=== PATIENT | female | born 1995 | race African-American/Black ===

== ENCOUNTER 2021-02-24 09:45 | Outpatient (REF) | payer OTHER, SELFPAY ==
[2021-02-24 10:12] LABS: MANUAL DIFF FLAG NO
[2021-02-24 10:18] LABS: Basophils Percent Auto 0.3 % (0-2); Eosinophils Absolute Auto 0.1 X10*3/uL (0.0-0.4); Eosinophils Percent Auto 2.3 % (0-4); Hematocrit 37.4 % (37-47); Hemoglobin 11.7 g/dl (12.0-16.0); Imm Gran Abs Auto 0.02 X10*3/uL (0.00-0.03); Imm Gran Pct Auto 0.3 % (0.0-0.4); Lymphocytes Percent Auto 32.4 % (20-40); Mean Corpuscular HGB Conc 31.3 g/dl (31.0-35.0); Mean Corpuscular Hemoglobin 23.8 pg (27.0-33.0); Mean Corpuscular Volume 76.2 fL (80-98); Mean Platelet Volume 9.7 fL (9.4-12.3); Monocytes Absolute Auto 0.4 X10*3/uL (0.1-1.2); Monocytes Percent Auto 6.6 % (2-11); Neutrophils Absolute Auto 3.6 X10*3/uL (2.0-8.3); Neutrophils Percent Auto 58.1 % (45-73); Platelet Count 331 X10*3/uL (160-400); Red Blood Count 4.91 X10*6/uL (4.20-5.50); Red Cell Distribution Width 14.3 % (11.0-16.0); White Blood Count 6.2 X10*3/uL (4.8-10.8)
[2021-02-24 11:01] LABS: Alanine Aminotransferase 13 U/L (0-31); Albumin Level 4.2 g/dL (3.5-5.0); Alkaline Phosphatase 68 U/L (39-117); Anion Gap 11 (12-20); Aspartate Amino Transferase 16 U/L (5-31); Bilirubin Total 0.4 mg/dL (0.0-1.0); Blood Urea Nitrogen 13 mg/dL (9-16); Calcium 9.4 mg/dL (8.4-10.2); Carbon Dioxide 25 mmol/L (22-29); Chloride 109 mmol/L (96-108); Cholesterol 209 mg/dL; Estimated Glomerular Filt Rate > 60; Glucose Fasting 91 mg/dL (60-99); HDL Cholesterol 52 mg/dL; LDL Cholesterol Calculated 145 mg/dl; Potassium 4.4 mmol/L (3.3-5.1); Sodium 141 mmol/L (135-145); Total Protein 6.9 g/dL (6.5-8.0); Triglycerides 61 mg/dL
[2021-02-24 11:21] LABS: Thyroid Stimulating Hormone 2.55 uIU/mL (0.32-4.0)
== END 2021-02-24 09:46 | disposition home or self-care (01) ==
LOC: HO.LAB 09:45
PROVIDERS: PCP Internal Medicine; Visit Provider Internal Medicine
DX: E66.3 Overweight (principal)
CPT/HCPCS: 36415; 80053; 80061; 84443; 85025

== ENCOUNTER 2022-01-23 10:00 | Outpatient (RCR) | payer OTHER, SELFPAY ==
--- NOTE | 2021-12-24 13:52 | MHC.PT.EP ---
[facility] [place] Office [place] [facility] [place] Office [address] Radha Hendrix [address] [phone] F: [phone] F: [phone] F: [phone] F: [phone] Physical Therapy Plan of Care Date of Evaluation: Date of Surgery: N/A Diagnosis: low back pain (RC) Assessment: pt's signs and symptoms consistent w/ lumbar radiculopathy. Other working diagnoses include SI dysfunction and pelvic floor dysfunction. pt presents to physical therapy with pain, decreased range of motion, decreased strength, impaired functional mobility, impaired postural awareness, and gait deviations. pt is a good candidate for skilled PT due to age, potential remediation of impairments, typical disease/condition progression and prognosis, comorbidities, and motivation. pt would benefit from tailored strengthening and stretching exercise program, functional training, gait training, postural re-training, neuromuscular re-education, modalities as needed for pain, equipment safety demonstration. Frequency and Duration: The patient will be seen 2x/wk for 4 wks Short Term Goals: pt will be I w/ HEP to promote self-management of condition. pt will demo proper sitting posture w/ lumbar roll to promote neutral spine w/ seated ADLs. pt will improve hip abduction strength by 1 MMT grade to remediate Trendelenburg on even ground. Librarian Helper Goals: pt will report a statistically significant improvement in self-reported outcome measure, Annamarie, to promote return to PLOF. pt will demo proper lifting mechanics from floor to chest height x3 reps to promote neutral spine w/ lifting her son. Treatment Plan: Modalities to reduce pain, spasms and effusion. Manual therapy to restore motion and function. Therapeutic exercise to improve strength and flexibility. Neuromuscular re-education for posture and balance. Therapeutic activities to return to functional activities of daily living. Electronically signed by: Bettie Larsen PT, DPT Please sign and return to therapist. Thank you for your referral.
--- NOTE | 2022-02-02 11:19 | MHC.PT.DC ---
[facility] [place] Office [place] Office [place] Office [address] Radha Hendrix [address] [phone] F: [phone] F: [phone] F: [phone] F: [phone] Physical Therapy Discharge Report Diagnosis: low back pain (RC) Date of Surgery: N/A Date of Evaluation: 12/24/21 Date of Discharge: 02/02/22 Treatments to Date: 7 Cancellations to Date: 0 No Shows to Date: 0 Discharge Status: Achieved Goals Improved Function Independent with HEP Discharge Summary: The patient overall reports a reduction in pain intensity and frequency. She has achieved all short term and extermination inspector goals established at the initial evaluation. She is independent with her home exercise program including hip and back stretching as well as core and pelvic stability exercises. She occasionally has some mild flare ups but feels her current program is adequate in controlling her pain. She is discharged from this physical therapy plan of care to her [facility]. Electronically signed by: Bettie Larsen PT, DPT Please sign and return to therapist. Thank you for your referral.
== END 2022-02-02 11:19 | disposition home or self-care (01) ==
LOC: HO.PT 10:00
PROVIDERS: PCP Nurse Practitioner Family; Visit Provider Nurse Practitioner Family
DX: M54.50 Low back pain, unspecified (principal)
CPT/HCPCS: 97110; 97112; 97162; 97530

== ENCOUNTER 2024-06-06 10:33 | Outpatient (AMB) | payer OTHER, SELFPAY ==
--- NOTE | 2024-06-06 10:42 | MHC.PC.OV ---
Vital Signs 06/06/24 10:43 Height 5 ft 5 in Weight 173 lb BMI 28.8 BP 130/60 Blood Pressure Location Lt brachial Position Sitting Intake Visit Reasons: Re est care- PE request Intake Note: Patient is here today for a physical and YAHIR from B.S. Pt decline flu shot today. Bodywork Therapist Required: No Compensation Specialist: Not Required per policy Accompanied by: Self / Same As Patient Allergies No Known Allergies Allergy (Verified 06/06/24 10:43) Tobacco use date assessed: 06/06/24 Dental Screening Dental Screen Date: 06/06/24 Did you have a dental visit in the last 12 months?: Yes Did you have a dental problem in the last 6 months where you did not have access to dental care?: No Was dental information given to patient?: Patient has dentist HPI Re est care- PE request HPI Details Patient presents to the office requesting an annual physical. In addition she reports a lump in the left lateral side below the chest. NO pain or tenderness. 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 1. Little interest or pleasure in doing things: not at all 2. Feeling down, depressed, or hopeless: not at all 3. Trouble falling or staying asleep, or sleeping too much: not at all 4. Feeling tired or having little energy: not at all 5. Poor appetite or overeating: not at all 6. Feeling bad about yourself - or that you are a failure or have let yourself or your family down: not at all 7. Trouble concentrating on things, such as reading the newspaper or watching television: not at all 8. Moving or speaking so slowly that other people could have noticed. Or the opposite - being so fidgety or restless that you have been moving around a lot more than usual: not at all 9. Thoughts that you would be better off or of hurting yourself in some way: not at all Total score: 0 Depression Screening Interpretation: Negative Depression Screening Done: Yes Source: Developed by Drs. Олег Hernandez, Adelita Darden, Haile Morfin and colleagues, with an educational tracey from [employer]. Thrive Questionnaire Date Thrive assessed: 06/06/24 I am a: Patient What is your living situation today?: I have a steady place to live Within the past 12 months, did the food you bought not last and you didn't have the money to get more?: Never true Within the past 12 months, did you worry whether your food would run out before you got money to buy more?: Never true Do you have trouble paying for medicines?: No Do you have trouble getting transportation to medical appointments?: No Do you have trouble paying your heating and electricity bill?: No Do you have trouble taking care of your child, family member or friend?: No Do you have trouble with day-to-day activities such as bathing, preparing meals, shopping, managing finances, etc.?: No Are you currently unemployed and looking for a job?: No Are you interested in more education?: No Currently or been in a relationship where the following occur: No concerns reported THRIVE Score: 0 AUDIT C Alcohol Use Questionnaire (AUDIT-C) 1. How often do you have a drink containing alcohol?: Never 3. How often do you have six or more drinks on one occasion?: Never Total Score: 0 YASH-7 AMB Questionnaire YASH-7 Date YASH - 7 assessed: 06/06/24 Feeling nervous, anxious, or on edge: 0 = Not at all Not being able to stop or control worryin = Not at all Worrying too much about different things: 0 = Not at all Trouble relaxin = Not at all Being so restless that it is hard to sit still: 0 = Not at all Becoming easily annoyed or irritable: 0 = Not at all Feeling afraid as if something awful might happen: 0 = Not at all Total YASH-7 score (0-4 normal; 5-9 mild; 10-14 moderate; 15-21 severe): 0 Source: Developed by Drs. Олег Hernandez, Adelita Darden, Haile Morfin and colleagues, with an educational tracey from [employer]. Physical exam (Primary Care) Vital Signs: Last Vital Signs BP 130/60 06/06/24 10:43 BMI result Body Mass Index 28.8 Tobacco/Smoking Status: Tobacco use Status Tobacco use date assessed 06/06/24 06/06/24 10:48 Patient Tobacco Use Status Never used Tobacco 06/06/24 10:47 e-Cigarette/Vaping Use Never Used 06/06/24 10:47 PHQ-9: PHQ-9 Score PHQ-9: Total score 0 06/06/24 10:49 Depression Screening Interpretation: Negative Thrive Assessment: Date of Thrive Assessment Date Thrive assessed 06/06/24 06/06/24 10:43 Currently or been in a relationship where the following occur: No concerns reported Coding Level of Care Code Est Pt Level 3 (95710) Est Pt Prev Care 18-39y(50474) Diagnoses Lipoma D17.9 Annual physical exam Z00.00 Assessment & Plan Assessment & Plan (1) Lipoma: Code(s): D17.9 - Benign lipomatous neoplasm, unspecified Category: Medical Plan: Surgical opinion requested (2) Annual physical exam: Code(s): Z00.00 - Encounter for general adult medical examination without abnormal findings Plan: Fasting bw requested. Orders: Referrals General Surgery Referral D17.9 - Benign lipomatous neoplasm, unspecified Scribe Plan - Not visible on output: History of Present Illness The patient is a 28-year-old female presenting with a lump. She reports the presence of this subcutaneous mass on the left flank for approximately seven to eight years. The patient noticed a gradual increase in the size of the lump over time, raising concerns about its nature. The lump is described as non-tender and has indistinct edges. The patient desires removal primarily for cosmetic reasons and reports no associated symptoms, change in the lump's consistency, or overlying skin changes. There is no precedent medical intervention for this condition, and she experiences stress when viewing the lump. 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 - Housing: Lives with her boyfriend and two children, aged three and one. - Substance Use: Denies smoking, alcohol, and drug use, including marijuana. - Reproductive History: Currently uses control. - Exercise: Engages in home exercises, including bodyweight and cardio, approximately four times a week. Review of Systems - General: Denies any other medical issues. - Psychiatric: Denies mental health issues including anxiety and depression. - Musculoskeletal: Denies other lumps or similar symptoms elsewhere. Physical Exam - Integumentary- Swelling on the left flank with indistinct edges, non-tender, skin and swelling palpably separate. Results Plan - Lipoma: Referral to a surgeon was recommended for potential removal of the lipoma. The decision for surgical excision will depend on whether the lump causes significant cosmetic concerns or stress to the patient. Patient was informed and verbally consented to the use of an ambient scribe for clinic note documentation during this visit. Discussion Notes We discussed that the lump is likely a lipoma, a benign fatty tumor. I informed the patient that while removal is possible, it is typically reserved for cases causing distress or irritation. I highlighted that surgery would result in a scar similar in size to the lump and involves a healing process. The patient is aware that this process is not trivial but agreed to proceed with consulting a surgeon to explore options. We'll perform routine blood work including tests for anemia, thyroid function, and lipid profile, which requires the patient to undergo fasting before the blood draw. Patient Instructions - Undergo fasting after midnight before scheduled blood work. - Follow up with the referred surgeon to discuss potential removal of the lipoma. - Maintain regular exercise and continue current health practices. - Return for an annual exam if all results are normal.
[2024-06-06 10:43] VITALS: BP 130/60; BMI 28.8
== END 2024-06-06 12:37 | disposition home or self-care (01) ==
PROVIDERS: PCP Internal Medicine; Visit Provider Internal Medicine
DX: Z00.00 Encounter for general adult medical examination without abnormal findings (principal); D17.9 Benign lipomatous neoplasm, unspecified

== ENCOUNTER → 2024-06-06 10:33 | Outpatient (BNVA) | payer OTHER, SELFPAY | PROVIDERS: PCP Internal Medicine; Visit Provider Internal Medicine ==

== ENCOUNTER 2024-06-20 08:53 | Outpatient (REF) | payer OTHER, SELFPAY ==
[2024-06-20 11:40] LABS: Alanine Aminotransferase 15 U/L (0-31); Albumin Level 3.9 g/dL (3.5-5.0); Alkaline Phosphatase 50 U/L (39-117); Anion Gap 14 (12-20); Aspartate Amino Transferase 21 U/L (5-31); Bilirubin Direct < 0.2 mg/dL (0.0-0.5); Bilirubin Total 0.2 mg/dL (0.0-1.0); Blood Urea Nitrogen 11 mg/dL (9-16); Calcium 8.8 mg/dL (8.4-10.2); Carbon Dioxide 24 mmol/L (22-29); Chloride 107 mmol/L (96-108); Cholesterol 244 mg/dL (<200); Estimated Glomerular Filt Rate > 60; Glucose Random 85 mg/dL (60-115); HDL Cholesterol 64 mg/dL (>40); LDL Cholesterol Calculated 155 mg/dL (<100); Potassium 4.2 mmol/L (3.3-5.1); Sodium 141 mmol/L (135-145); Total Protein 7.1 g/dL (6.5-8.0); Triglycerides 125 mg/dL (<150)
[2024-06-20 11:42] LABS: Thyroid Stimulating Hormone 1.73 uIU/mL (0.32-4.0)
== END 2024-06-20 08:54 | disposition home or self-care (01) ==
LOC: HO.LAB 08:53
PROVIDERS: Absent Provider Internal Medicine; PCP Internal Medicine; Visit Provider Surgery
DX: Z00.00 Encounter for general adult medical examination without abnormal findings (principal); D17.9 Benign lipomatous neoplasm, unspecified
CPT/HCPCS: 36415; 80048; 80061; 80076; 84443

== ENCOUNTER 2024-06-20 08:53 | Outpatient (AMB) | payer OTHER, SELFPAY ==
--- NOTE | 2024-06-20 08:55 | A.OFFVIS_ITS ---
Vital Signs 06/20/24 08:59 Height 5 ft 5 in Weight 175 lb BMI 29.1 BP 135/83 Blood Pressure Location Rt brachial Position Sitting Pulse 94 Intake Visit Reasons: Benign lipomatous neoplasm, unspecified Intake Note: Patient referred by pcp Dr. Soliz for lipoma on Lt flank. Present for 1yr. Patient c/o: enlarging. Founding Partner Required: No Accompanied by: Self / Same As Patient Allergies No Known Allergies Allergy (Verified 06/20/24 08:59) HPI Comments Details: Patient presents for evaluation of the left flank soft mass. She has had this several years time. It has markedly increased in size and become more symptomatic. She would like to have it excised. She has no such lesions elsewhere. 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 Assessment & Plan Assessment & Plan (1) Lipoma: Code(s): D17.9 - Benign lipomatous neoplasm, unspecified Category: Surgical Plan Because of the size of this mass, I think the patient would best be served for excision in an ambulatory surgical setting. Risks, benefits, alternatives of excision of left flank large lipoma were reviewed with the patient and included but not limited to bleeding, infection, recurrence, numbness, pain, scarring, seroma formation, wound dehiscence and the patient wished to proceed. All q uestions answered. Arrangements were made for this. Coding Level of Care Code New Pt Level 5 (75054) Diagnoses Lipoma D17.9
[2024-06-20 08:59] VITALS: BP 135/83; PULSE 94; BMI 29.1
== END 2024-06-20 09:02 | disposition home or self-care (01) ==
PROVIDERS: PCP Internal Medicine; Visit Provider Surgery
DX: D17.1 Benign lipomatous neoplasm of skin and subcutaneous tissue of trunk (principal)
CPT/HCPCS: 99204

== ENCOUNTER 2024-07-27 08:22 | Day surgery (SDC) | payer OTHER, SELFPAY ==
--- NOTE | 2024-07-26 09:55 | P.HPSUR_ITS ---
Pre-Procedural Eval Section A - 24 Hr Update-Section A only Date of Service: 07/27/24 The patient is an INPATIENT: No Changes since office visit: No Cold of Flu in the past 2 weeks, No New Medical Problems, No Changes in Medication and No Patient answered all questions Section B - Complete if H&P > 30 days Chief Complaint: Benign lipomatous neoplasm, unspecified Allergies: Allergies Allergy/AdvReac Type Severity Reaction Status Date / Time No Known Allergies Allergy Verified 06/20/24 08:59 Review of Systems Sugical H&P ROS: Negative: Constitution, Cardiovascular, Respiratory, Neurological, Psychiatric, Hem-Onc, Allergic/Immunologic, Gastrointestinal, Genitourinary, Musculoskeletal, Integumentary, Endocrine and Eyes/Ears/N ose/Throat Exam Surgical H&P Exam: Normal: HEENT, Normal: Heart, Normal: Lungs, Normal: Extremities, Normal: Abdomen, Normal: Skin and Normal: Neurological Plan I have reviewed the history and physical and performed a pertinent physical examination on my patient. No changes have occurred unless specified. Time Spent With Patient Time: Total time managing care of this patient today ____ minutes.
[2024-07-27 09:24] LABS: UPreg QC Valid YES; Urine Pregnancy NEGATIVE (NEGATIVE)
[2024-07-27 09:44] VITALS: BMI 27.8
--- NOTE | 2024-07-27 09:50 | P.CONAN_ITS ---
Documented by User: oMnse De La Cruz NP 07/25/24 13:53 HPI - Anesthesia Eval Consult details Narrative: 28yo F for Left Wide Local Large Excision Flank Mass PMFSH Active Problems Active Problems: All Active Problems Lower back pain (Acute) Lipoma (Acute) Overweight (BMI 25.0-29.9) (Acute) Past Medical History Medical History (Updated 07/27/24 @ 09:31 by Wilma Bain RN) Preeclampsia complicating hypertension Overweight (BMI 25.0-29.9) Family History Family History Father Essential hypertension Mother Lupus (systemic lupus erythematosus) Surgical History Surgical History (Updated 07/27/24 @ 09:31 by Wilma Bain RN) Lipoma Social History Social History Housing: Condominium Alcohol intake: never Patient Tobacco Use Status: Never used Tobacco e-Cigarette/Vaping Use: Never Used Second Hand Smoke Exposure: No Use of substances other than those prescribed or required for medical reasons: No Are you DNR?: No Advance Directives: No Advance Directives Information Provided: Yes Recently lost weight without trying: No Nutrition Risks: No Nutritional Risk Patient : No service: No Current occupational status: employed 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 Current occupational exposures/hazards: No Cognitive needs: No Hearing needs: No Vision needs: Yes (Glasses) Meds Allergies Allergy/AdvReac Type Severity Reaction Status Date / Time No Known Allergies Allergy Verified 06/20/24 08:59 Home Medications ?Medication ?Instructions ?Recorded ?Confirmed ?Last Taken ?Type norethindrone (contraceptive) 0.35 0.35 mg PO DAILY 02/06/21 06/20/24 Unknown Hi story mg tablet (Incassia) Assessment and Plan Assessment Anesthesia Assessment: Chart Reviewed Documented by User: Evita Angel DO 07/27/24 09:50 PMFSH Past Medical History Medical History (Updated 07/27/24 @ 09:31 by Wilma Bain RN) Preeclampsia complicating hypertension Overweight (BMI 25.0-29.9) Family History Family History Father Essential hypertension Mother Lupus (systemic lupus erythematosus) Family history of problems with anesthesia: No Surgical History Surgical History (Updated 07/27/24 @ 09:31 by Wilma Bain RN) Lipoma History of Problems with Anesthesia: No Social History [facility] Alcohol intake: never Patient Tobacco Use Status: Never used Tobacco e-Cigarette/Vaping Use: Never Used Second Hand Smoke Exposure: No Use of substances other than those prescribed or required for medical reasons: No Are you DNR?: No Advance Directives: No Advance Directives Information Provided: Yes Recently lost weight without trying: No Nutrition Risks: No Nutritional Risk Patient : No service: No Current occupational status: employed 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 Current occupational exposures/hazards: No Cognitive needs: No Hearing needs: No Vision needs: Yes (Glasses) Meds Allergies Allergy/AdvReac Type Severity Reaction Status Date / Time No Known Allergies Allergy Verified 06/20/24 08:59 Home Medications ?Medication ?Instructions ?Recorded ?Confirmed ?Last Taken ?Type norethindrone (contraceptive) 0.35 0.35 mg PO DAILY 02/06/21 06/20/24 Unknown History mg tablet (Incassia) Exam Exam Date and Time: 07/27/24 0945 Height,Weight and Vital Signs: Height 5 ft 6 in Weight 78.075 kg Airway Mallampati Class: I TM Dist: >3cm Neck ROM: Full Loose/Missing/Broken Teeth: No (patient denies any loose or broken teeth) Heart: S1S2 Lungs: CTAB Assessment and Plan Assessment Anesthesia Assessment: Anesthesia Plan Discussed and Chart Reviewed Final Anesthetic Review Family History of Problems with Anesthesia: No History of Problems with Anesthesia: No NPO: Yes ASA Class: I Final Preanesthetic Review: No Changes in Pt Med Stat, Meds/Allgs Chart Reviewed, Consent Obtained/Reviewed and Anes Risks/Benef Reviewed Patient Risk: Low Procedure Risk: Low Anesthetic Plan Anesthetic Plan: MAC: and Agree w/ Assess. and Plan Disposition: Standard PACU
[2024-07-27] MEDS: Lactated Ringers 1,000 ML 100 ML IVCONT (10:03)
--- NOTE | 2024-07-27 10:32 | W.PM.OPN ---
Operative Note Operative Note Date of Service: 07/27/24 Narrative: Preoperative diagnosis: [] Symptomatic enlarging left mid flank lipoma Postop diagnosis: [] The same Procedure [] wide local excision left mid flank large lipoma Surgeon: [] Deniz Trench Pipe Layer Helper: [] Rhianna Type of Anesthesia: [] Mac Indication for surgery: [] Final specimen size measured approximately 10 x 6 cm consistent with a large multilobulated lipoma Findings: [] Patient brought to the operating room, placed on operative table supine position, after an adequate level MAC anesthesia was induced, patient was placed in the right lateral decubitus position. The plaque was prepped and draped in usual sterile fashion. Using a transverse incision over the mass in question after he was infiltrated 0.5% Marcaine/1% lidocaine, this carried down through skin, subcutaneous tissue, were large multilobulated lipoma as described above was uneventfully dissected out enucleated and sent to pathology. Wound was irrigated, secured hemostasis, and closed in the following manner; interrupted inverted deep dermal 3-0 Vicryl sutures followed by running subcuticular 4-0 Vicryl sutures were placed. Steri-Strips and sterile dressings were applied. Wound was again infiltrated 0.5% Marcaine/1% lidocaine at completion. Sponge, needle, and instrument counts reported correct. Patient tolerated the procedure well and emerged from anesthesia stable condition. EBL minimal
[2024-07-27 10:42] VITALS: BP 112/69; PULSE 80; RESP 16; TEMP 36.1; O2SAT 97
[2024-07-27 10:57] VITALS: BP 114/77; PULSE 70; RESP 16; TEMP 36.1; O2SAT 97
== END 2024-07-27 11:30 | disposition home or self-care (01) ==
PROVIDERS: Nurse Practitioner; PCP Internal Medicine; Visit Provider Surgery
PROC: (CPT 21931; principal; 2024-07-27 10:50)
DX: D17.1 Benign lipomatous neoplasm of skin and subcutaneous tissue of trunk (principal); E66.3 Overweight; Z68.25 Body mass index [BMI] 25.0-25.9, adult
CPT/HCPCS: 21931; 81025; 88304; J0690; J1885; J2003; J2250; J2704; J2795; J3010

== ENCOUNTER → 2024-07-27 08:22 | Outpatient (BNV) | payer OTHER, SELFPAY | PROVIDERS: PCP Internal Medicine; Visit Provider Surgery | DX: D17.1 Benign lipomatous neoplasm of skin and subcutaneous tissue of trunk (principal) | CPT/HCPCS: 21931 ==

== ENCOUNTER 2024-08-07 09:23 | Outpatient (AMB) | payer OTHER, SELFPAY ==
--- NOTE | 2024-08-07 09:24 | A.OFFVIS_ITS ---
Intake Visit Reasons: s/p WLE Lrg lft Flank mass Intake Note: Patient here s/p WLE lipoma on Lt flank. Reports incision healing well. Patient c/o: no concerns. Never took rx pain meds. Drug Room Clerk Required: No Accompanied by: Self / Same As Patient Allergies No Known Allergies Allergy (Verified 08/07/24 09:25) HPI Comments Details: Status post left flank lipoma excision. No wound issues or complaints. Pathology is benign. 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 All questions answered. Coding Level of Care Code Global (31226) Diagnoses Status post excision of lipoma Z98.890; Z86.018
--- OUTSIDE RECORDS SUMMARY | 2024-08-07 13:45 | XMS_ITS | Encounter Summary ---
Author Organization [facility] Address [address] [place] [id number] Phone Care Team Providers Care Bank Worker Name Role Phone Rebecca Caceres MD Primary Care Provider [phone] Encounter Details Date Type Department Care Team (Late st Contact Info) Description 07/26/2012 Documentation [facility] [place] Family Medicine [address] [place] [address] Family Medicine, Physician [address] [place], [place] [id number] Social History Tobacco Use Types Packs/Day Years Used Date Smoking Tobacco: Never Assessed Comments Unknown Sex and Gender Information Value Date Recorded Sex Assigned at Not on file Legal Sex Female 4:43 PM EDT Gender Identity Not on file Sexual Orientation Not on file documented as of this encounter Plan of Treatment Not on file documented as of this encounter Visit Diagnoses Not on filedocumented in this encounter Care Teams Bank Worker Relationship Specialty Start Date End Date Rebecca Caceres MD [address] [place] [address] PCP - General 02/19/17 01/12/23 documented as of this encounter
--- OUTSIDE RECORDS SUMMARY | 2024-08-07 13:45 | XMS_ITS | Encounter Summary ---
Author Organization [facility] Address [address] [place] [address] Phone Care Team Providers Care Business Integration Manager Name Role Phone Rebecca Caceres MD Primary Care Provider Encounter Details Date Type Department Care Team (Late st Contact Info) Description 05/21/2011 Documentation [facility] [place] [address] [place] [address] Family Medicine, Physician [address] [place] [address] Social History Tobacco Use Types Packs/Day Years [...] on filedocumented in this encounter Care Teams Business Integration Manager Relationship Specialty Start Date End Date Rebecca Caceres MD [address] [place] [address] PCP - General 02/19/17 01/12/23 documented as of this encounter
--- OUTSIDE RECORDS SUMMARY | 2024-08-07 13:45 | XMS_ITS | Encounter Summary ---
Author Organization [facility] Address [address] [place] [address] Phone Care Team Providers Care Tool Machine Set Up Operator Name Role Phone Rebecca Caceres MD Primary Care Provider [phone] Encounter Details Date Type Department Care Team (Late st Contact Info) Description 02/25/2017 Conversion Encounter [facility] [place] [address] [place] [address] Social History Tobacco Use Types Packs/Day Years Used Date Smoking Tobacco: Never Comments:Never smoker Comments Unknown Sex and Gender Information Value Date Recorded Sex Assigned at Not on file Legal Sex Female 4:43 PM EDT Gender Identity Not on file Sexual Orientation Not on file documented as of this encounter Plan of Treatment Not on file documented as of this encounter Visit Diagnoses Not on filedocumented in this encounter Care Teams Tool Machine Set Up Operator Relationship Specialty Start Date End Date Rebecca Caceres MD [address] [place] [address] PCP - General 02/19/17 01/12/23 documented as of this encounter
--- OUTSIDE RECORDS SUMMARY | 2024-08-07 13:45 | XMS_ITS | Clinical Summary ---
Author Organization [facility] Address [address] [place] [address] Phone Care Team Providers Care Form Presser Name Role Phone Unavailable Primary Care Provider Unavailabl e Immunizations Name Administration Dates Next Due DTP 06/15/1995, 4,04/14/1994, 994 DTaP 5 11/07/1998 HPV, Quadrivalent 05/01/2010,07/04/2009,04/30/20 09 Hep B, ped/adol 06/23/1994,03/03/1994,1993 Hib (PRP-T) 06/15/1995, 4,04/14/1994, 994 Influenza, injectable, trivalent 04/30/2009 MMR 11/08/1997,12/08/1994 Meningococcal Conj (Menactra) MCV4P 07/15/2006 OPV 11/07/1998, 4,04/14/1994, 994 Tdap 07/15/2006 Varicella 04/30/2009,11/07/1998 Family History Relation Name Status Comments Brother Alive brother: Alive and well Father Alive Father: Alive a nd well Mother Alive Mother: Systemi c lupus erythematosus Social History Tobacco Use Types Packs/Day Years Used Date Smoking Tobacco: Never Comments:Never smoker Comments Unknown Sex and Gender Information Value Date Recorded Sex Assigned at Not on file Legal Sex Female 4:43 PM EDT Gender Identity Not on file Sexual Orientation Not on file Last Filed Vital Signs Vital Sign Reading Time Taken Comments Blood Pressure 114/78 07/19/2013 12:00 AM EST Pulse - - Temperature 36.9 ??C (98.5 ??F) 07/19/2013 12:[address] Respiratory Rate - - Oxygen Saturation - - Inhaled Oxygen Concentration - - Weight 62.6 kg (138 lb) 07/19/2013 12:00 AM EST Height 165.7 cm (5' 5.25 ) 07/19/2013 12:[address] Body Mass Index 22.79 07/19/2013 12:00 AM EST Plan of Treatment Health Maintenance Due Date Last Done Comments DTaP,Tdap,and Td Vaccines (7 - Td or Tdap) 07/15/2016 07/15/2006, 11/07/1998, 06/15/1995, Additional history exists Influenza Vaccines (#1) 2024 04/30/2009 COVID-19 Vaccine ( season) 2024 Hepatitis B Vaccines Completed 06/23/1994, 03/03/1994, 1993 HIB Vaccines Completed 06/15/1995, 06/11, 04/14/1994, Additional history exists MMR Vaccines Completed 11/08/1997, 12/08/1994 IPV Vaccines Completed 11/07/1998, 06/11, 04/14/1994, Additional history exists Meningococcal Vaccine Aged Out 07/15/2006 No bolivar jeff eligible based on patient's age to complete this topic Varicella Vaccines Completed 04/30/2009, 11/07/1998 HPV Vaccines Completed 05/01/2010, 06/12, 04/30/2009 Hepatitis A Vaccines Aged Out No long er eligible based on patient's age to complete this topic Men B Vaccine Aged Out No longer elig ible based on patient's age to complete this topic Pneumococcal Vaccine Aged Out No long er eligible based on patient's age to complete this topic Procedures * Due to [place] [employer] law, this organization might not be sharing sensitive test results. Procedure Name Priority Date/Time Associated Diagnosis Comments CHLAMYDIA AND GONORRHEA, AMPLIFIED Routine 07/26/2012 1:50 PM EST from Last 3 Months or Most Recently Relevant to Health Maintenance Results * Due to [place] [employer] law, this organization might not be sharing sensitive test results. * Chlamydia and Gonorrhoea, Amplified (07/26/2012 1:50 PM EST) URINE GC AMP PROBE NEGATIVE [facility] Comment: NO NEISSERIA GONORRHOEAE RNA DETECTED IN THIS PATIENT'S SAMPLE. ? (REFERENCE RANGE/NORMAL VALUE: NOT DETECTED) ? NOTE: THIS TEST USES DIGITAL PRODUCTION ARTIST MEDIATED AMPLIFICATION METHOD TO DETECT rRNA FROM C.TRACHOMATIS AND N.GONORRHOEAE. A NEGATIVE RESULT DOES NOT PRECLUDE INFECTION WITH C.TRACHOMATIS OR N.GONORRHOEAE BECAUSE RESULTS ARE DEPENDENT ON ADEQUATE SPECIMEN COLLECTION, ABSENCE OF INHIBITORS, AND SUFFICIENT rRNA TO BE DETECTED. THE APTIMA COMBO2 ASSAY IS NOT INTENDED FOR THE EVALUATION OF SUSPECTED SEXUAL ABUSE OR FOR OTHER MEDICO LEGAL INDICATIONS. IS TRUE FOR ALL NON CULTURE METHODS, A POSITIVE SPECIMEN OBTAINED FROM A PATIENT AFTER THERAPEUTIC TREATMENT CANNOT BE INTERPRETED INDICATING THE PRESENCE OF VIABLE C.TRACHOMATIS OR N.GONORRHOEAE. THERAPEUTIC FAILURE OR SUCCESS CANNOT BE DETERMINED WITH THE APTIMA COMBO2 ASSAY SINCE NUCLEIC ACID MAY PERSIST FOLLOWING APPROPRIATE ANTIMICROBIAL THERAPY. A NEGATIVE URINE RESULT FOR A PATIENT WHO IS CLINICALLY SUSPECTED OF HAVING A CHLAMYDIAL OR GONOCOCCAL INFECTION DOES NOT RULE OUT THE PRESENCE OF C.TRACHOMATIS OR N.GONORRHOEAE IN THE UROGENITAL TRACT. TESTING OF AN ENDOCERVICAL(FEMALE) OR URETHRAL(MALE) SPECIMEN IS RECOMMENDED IF THERE IS HIGH CLINICAL SUSPICION OF INFECTION. PRESERVCYT LIQUID PAP AND URINE SAMPLING ARE NOT DESIGNED TO REPLACE CERVICAL EXAMS AND ENDOCERVICAL SAMPLES FOR DIAGNOSIS OF FEMALE UROGENITAL INFECTIONS. PATIENTS MAY HAVE CERVICITIS, URETHRITIS, URINARY TRACT INFECTIONS, OR VAGINAL INFECTIONS DUE TO OTHER CAUSES OR CONCURRENT INFECTIONS WITH OTHER AGENTS. URINE CHLAMYDIA AMP PROBE NEGATIVE [facility] Comment: NO CHLAMYDIA TRACHOMATIS RNA DETECTED IN THIS PATIENT'S SAMPLE. ? (REFERENCE RANGE/NORMAL VALUE: NOT DETECTED) 07/26/2012 1:50 PM EST Narrative [facility] - 07/26/2012 1:50 PM EST URINE CHLAMYDIA GC AMP PROBE us Historical Unknown LAB MICROBIOLOGY - GENERAL OR DERABLES Final Result [facility] [address] [place] [address], from Last 3 Months or Most Recently Relevant to Health Maintenance
--- OUTSIDE RECORDS SUMMARY | 2024-08-07 13:45 | XMS_ITS | Encounter Summary ---
Author Organization [facility] Address [address] [place] [address] Phone Care Team Providers Care Market News Reporter Name Role Phone Rebecca Caceres MD Primary Care Provider [phone] Encounter Details Date Type Department Care Team (Late st Contact Info) Description 05/21/2011 Documentation [facility] [place] Family Medicine [address] [place] [address] Family Medicine, Physician [address] [place] [address] Social History Tobacco Use Types [...] on filedocumented in this encounter Care Teams Market News Reporter Relationship Specialty Start Date End Date Rebecca Caceres MD [address] [place] [address] PCP - General 02/19/17 01/12/23 documented as of this encounter
--- OUTSIDE RECORDS SUMMARY | 2024-08-07 13:45 | XMS_ITS | Encounter Summary ---
Author Organization [facility] Address [address] [place] [address] Phone Care Team Providers Care Field Crop Farm Worker Name Role Phone Rebecca Caceres MD Primary Care Provider [phone] Encounter Details Date Type Department Care Team (Late st Contact Info) Description 07/26/2012 Documentation [facility] [place] Family Medicine [address] [place] [address] Family Medicine, Physician [address] [place], [place] [phone] Social History Tobacco Use Types Packs/Day Years [...] on filedocumented in this encounter Care Teams Field Crop Farm Worker Relationship Specialty Start Date End Date Rebecca Caceres MD [address] [place] [address] PCP - General 02/19/17 01/12/23 documented as of this encounter
== END 2024-08-07 09:34 | disposition home or self-care (01) ==
PROVIDERS: PCP Internal Medicine; Visit Provider Surgery
DX: Z98.890 Other specified postprocedural states (principal); Z86.018 Personal history of other benign neoplasm
CPT/HCPCS: 99024

== ENCOUNTER → 2024-08-07 09:23 | Outpatient (BNVA) | payer OTHER, SELFPAY | PROVIDERS: PCP Internal Medicine; Visit Provider Surgery ==

== ENCOUNTER 2024-08-27 15:32 | Emergency (ER) | payer OTHER, SELFPAY ==
[2024-08-27 15:47] VITALS: BP 105/78; PULSE 83; RESP 18; TEMP 36.3; O2SAT 98; BMI 25.8
--- NOTE | 2024-08-27 15:47 | ED_ITS ---
HPI - Abdominal Pain General Chief Complaint: Nausea/Vomiting/Diarrhea Stated Complaint: stomach pain, vomitiing Related Data Home Medications ?Medication ?Instructions ?Recorded ?Confirmed norethindrone (contraceptive) 0.35 0.35 mg PO DAILY 02/06/21 08/07/24 mg tablet (Incassia) Allergies Allergy/AdvReac Type Severity Reaction Status Date / Time No Known Allergies Allergy Verified 08/27/24 15:49 PMFSH Past Medical History Medical History (Updated 09/05/24 @ 13:39 by BIGG Burrows) Preeclampsia complicating hypertension Overweight (BMI 25.0-29.9) Surgical History (Updated 08/07/24 @ 09:36 by Won Guaman MD) S/P excision of lipoma (07/27/24) Lipoma Family History Family History Father Essential hypertension Mother Lupus (systemic lupus erythematosus) Social History Social History Housing: Condominium Alcohol intake: never Patient Tobacco Use Status: Never used Tobacco e-Cigarette/Vaping Use: Never Used Second Hand Smoke Exposure: No Advance Directives: No Advance Directives Information Provided: No service: No Current occupational status: employed 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 Full HPI, ROS and PE to be performed by primary ED provider. 28yo F presenting to the ED c/o nausea & epigastric abdominal pain since this AM s/p eating w/assoc diarrhea. Also reports fever x3 days. denies suspicious food intake, travel, sick contacts. PE: abdomen soft, nontender, no rebound or guarding Plan: labs, UA Medical Decision Making Lab Data 08/27/24 16:06 08/27/24 16:06 Labs: Lab Results 08/27/24 Range/Units 16:06 WBC 11.1 H (4.8-10.8) X10*3/uL RBC 5.26 (4.20-5.50) X10*6/uL Hgb 12.5 (12.0-16.0) g/dl Hct 39.0 (37.0-47.0) % MCV 74.1 L (80.0-98.0) fL MCH 23.8 L (27.0-33.0) pg MCHC 32.1 (31.0-35.0) g/dl RDW 15.0 (11.0-16.0) % Plt Count 295 (160-400) X10*3/uL MPV 9.6 (9.4-12.3) fL Immature Gran % (Auto) 0.4 (0.0-0.4) % Neut % (Auto) 85.3 H (45-73) % Lymph % (Auto) 9.8 L (20-40) % [place] % (Auto) 3.9 (2-11) % Eos % (Auto) 0.2 (0-4) % Baso % (Auto) 0.4 (0-2) % Lymph # (Auto) 1.1 L (1.2-4.9) X10*3/uL [place] # (Auto) 0.4 (0.1-1.2) X10*3/uL Eos # (Auto) 0.0 (0.0-0.4) X10*3/uL Baso # (Auto) 0.0 (0.0-0.2) X10*3/uL Abs Immat Gran (auto) 0.05 H (0.00-0.03) X10*3/uL Absolute Neuts (auto) 9.5 H (2.0-8.3) x10*3/uL Absolute Nucleated RBC 0.000 (0.0-0.012) X10*3/uL Nucleated RBC % (auto) 0.0 (0.0-0.2) /100WBC Sodium 141 (135-145) mmol/L Potassium 4.2 (3.3-5.1) mmol/L Chloride 106 (96-108) mmol/L Carbon Dioxide 22 (22-29) mmol/L Anion Gap 17 (12-20) BUN 9 (9-16) mg/dL Creatinine 0.70 (0.5-1.4) mg/dL Estim Creat Clear Calc 119.8 Estimated GFR > 60 Random Glucose 104 (60-115) mg/dL Calcium 10.1 D (8.4-10.2) mg/dL Magnesium 2.0 (1.6-2.6) mg/dL Total Bilirubin 0.2 (0.0-1.0) mg/dL Direct Bilirubin < 0.2 (0.0-0.5) mg/dL AST 20 (5-31) U/L ALT 17 (0-31) U/L Alkaline Phosphatase 82 (39-117) U/L Total Protein 8.6 H (6.5-8.0) g/dL Albumin 4.2 (3.5-5.0) g/dL Lipase 11 (8-78) U/L Urine Color Dark Yellow Urine Appearance Cloudy Urine pH 5.5 (5.0-9.0) Ur Specific [place] >= 1.030 H (1.005-1.025) Urine Protein 300 (3+) H (Neg-Trace) mg/dL Urine Glucose (UA) Negative (Negative) mg/dL Urine Ketones 15 (Negative) mg/dL Urine Blood Negative (Negative) Urine Nitrite Negative (Negative) Ur Leukocyte Esterase Negative (Negative) Urine RBC 0-2 (0-2) /HPF Urine WBC 0-5 (0-5) /HPF Ur Squamous Epith Cells 6-10 (0-2) /HPF Urine Bacteria None Seen (None Seen) Hyaline Casts 6-10 (0-2) /LPF Urine Test NEGATIVE (NEGATIVE) Medications Administered Discontinued Medications Generic Name Dose Route Start Last Admin Trade Name [employer] PRN Reason Stop Dose Admin Ondansetron HCl 4 mg 08/27/24 15:51 08/27/24 15:52 Ondansetron Odt 4 Mg Tab.Rapdis TRANSLINGU 08/27/24 15:52 4 mg ONCE ONE Administration Discharge Plan Discharge Clinical Impression: Abdominal pain Patient Disposition: Left W/O Completing Treatment Prescriptions: No Action norethindrone (contraceptive) [Incassia] 0.35 mg tablet 0.35 mg PO DAILY Discharge Date/Time: 08/27/24 20:34
[2024-08-27] MEDS: Ondansetron ODT 4 MG TAB.RAPDIS TRANSLINGU (15:52)
[2024-08-27 16:23] LABS: MANUAL DIFF FLAG NO
[2024-08-27 16:25] LABS: Appearance Urine Cloudy; Color Urine Dark Yellow; Glucose Urine UA Negative (Negative); Leukocyte Esterase Urine Negative (Negative); Nitrite Urine Negative (Negative); PH 5.5 (5.0-9.0); Specific Gravity - Urine >= 1.030 (1.005-1.025); UMIC TRIGGER UACC YES; Urine Blood Negative (Negative); Urine Ketones 15 mg/dL (Negative); Urine Protein 300 (3+) mg/dL (Neg-Trace)
[2024-08-27 16:26] LABS: Basophils Percent Auto 0.4 % (0-2); Eosinophils Percent Auto 0.2 % (0-4); Hemoglobin 12.5 g/dl (12.0-16.0); Imm Gran Abs Auto 0.05 X10*3/uL (0.00-0.03); Imm Gran Pct Auto 0.4 % (0.0-0.4); Lymphocytes Absolute Auto 1.1 X10*3/uL (1.2-4.9); Lymphocytes Percent Auto 9.8 % (20-40); Mean Corpuscular HGB Conc 32.1 g/dl (31.0-35.0); Mean Corpuscular Hemoglobin 23.8 pg (27.0-33.0); Mean Corpuscular Volume 74.1 fL (80.0-98.0); Mean Platelet Volume 9.6 fL (9.4-12.3); Monocytes Absolute Auto 0.4 X10*3/uL (0.1-1.2); Monocytes Percent Auto 3.9 % (2-11); Neutrophils Absolute Auto 9.5 x10*3/uL (2.0-8.3); Neutrophils Percent Auto 85.3 % (45-73); Platelet Count 295 X10*3/uL (160-400); Red Blood Count 5.26 X10*6/uL (4.20-5.50); White Blood Count 11.1 X10*3/uL (4.8-10.8)
[2024-08-27 16:27] LABS: UPreg QC Valid YES; Urine Pregnancy NEGATIVE (NEGATIVE)
[2024-08-27 16:37] LABS: Bacteria Urine None Seen (None Seen); RBC Urine 0-2 /HPF (0-2); WBC Urine 0-5 /HPF (0-5)
[2024-08-27 16:42] LABS: Alanine Aminotransferase 17 U/L (0-31); Albumin Level 4.2 g/dL (3.5-5.0); Alkaline Phosphatase 82 U/L (39-117); Anion Gap 17 (12-20); Aspartate Amino Transferase 20 U/L (5-31); Bilirubin Direct < 0.2 mg/dL (0.0-0.5); Bilirubin Total 0.2 mg/dL (0.0-1.0); Blood Urea Nitrogen 9 mg/dL (9-16); Calcium 10.1 mg/dL (8.4-10.2); Carbon Dioxide 22 mmol/L (22-29); Chloride 106 mmol/L (96-108); Creatinine Clr Calc Pharmacy 119.8; Estimated Glomerular Filt Rate > 60; Glucose Random 104 mg/dL (60-115); Lipase 11 U/L (8-78); Potassium 4.2 mmol/L (3.3-5.1); Sodium 141 mmol/L (135-145); Total Protein 8.6 g/dL (6.5-8.0)
--- OUTSIDE RECORDS SUMMARY | 2024-08-27 19:41 | XMS_ITS | Encounter Summary ---
Author Organization [facility] Address [address] [place] [address] Phone Care Team Providers Care Learning And Development Administrator Name Role Phone Rebecca Caceres MD Primary Care Provider [phone] Encounter Details Date Type Department Care Team (Late st Contact Info) Description 07/26/2012 Documentation [facility] [place] [address] [place] [address] Family Medicine, Physician [address] [place], [place] [phone] Social History Tobacco Use Types Packs/Day Years [...] on filedocumented in this encounter Care Teams Learning And Development Administrator Relationship Specialty Start Date End Date Rebecca Caceres MD [address] [place] [address] PCP - General 02/19/17 01/12/23 documented as of this encounter
--- OUTSIDE RECORDS SUMMARY | 2024-08-27 19:41 | XMS_ITS | Encounter Summary ---
Author Organization [facility] Address [address] [place] [address] Phone Care Team Providers Care Sql Database Programmer Name Role Phone Rebecca Caceres MD Primary Care Provider [phone] Encounter Details Date Type Department Care Team (Late st Contact Info) Description 02/25/2017 Conversion Encounter [facility] [place] [address] [place] [address] Social History Tobacco Use Types Packs/Day Years [...] on filedocumented in this encounter Care Teams Sql Database Programmer Relationship Specialty Start Date End Date Rebecca Caceres MD [address] [place] [address] PCP - General 02/19/17 01/12/23 documented as of this encounter
--- OUTSIDE RECORDS SUMMARY | 2024-08-27 19:41 | XMS_ITS | Encounter Summary ---
Author Organization [facility] Address [address] [place] [address] Phone Care Team Providers Care Epic Cupid Specialists Name Role Phone Rebecca Caceres MD Primary Care Provider [phone] Encounter Details Date Type Department Care Team (Late st Contact Info) Description 07/26/2012 Documentation [facility] [place] Family Medicine [address] [place] [address] Family Medicine, Physician [address] [place], [place] [phone] Social History Tobacco Use Types Packs/Day Years [...] on filedocumented in this encounter Care Teams Epic Cupid Specialists Relationship Specialty Start Date End Date Rebecca Caceres MD [address] [place] [address] PCP - General 02/19/17 01/12/23 documented as of this encounter
--- OUTSIDE RECORDS SUMMARY | 2024-08-27 19:41 | XMS_ITS | Encounter Summary ---
Author Organization [facility] Address [address] [place] [address] Phone Care Team Providers Care Wound Care Nurse Name Role Phone Rebecca aCceres MD Primary Care Provider [phone] Encounter Details Date Type Department Care Team (Late st Contact Info) Description 05/21/2011 Documentation [facility] [place] [address] [place] [address] Family Medicine, Physician [address] [place], [place] [phone] Social History Tobacco Use Types Packs/Day Years [...] on filedocumented in this encounter Care Teams Wound Care Nurse Relationship Specialty Start Date End Date Rebecca Caceres MD [address] [place] [address] PCP - General 02/19/17 01/12/23 documented as of this encounter
--- OUTSIDE RECORDS SUMMARY | 2024-08-27 19:41 | XMS_ITS | Encounter Summary ---
Author Organization [facility] Address [address] [place] [address] Phone Care Team Providers Care Real Estate Closing Coordinator Name Role Phone Rebecca Caceres MD Primary Care Provider [phone] Encounter Details Date Type Department Care Team (Late st Contact Info) Description 05/21/2011 [place]ation [facility] [place] [address] [place] [address] Family Medicine, Physician [address] [place], [place] [phone] Social History Tobacco Use Types Packs/Day Years [...] on filedocumented in this encounter Care Teams Real Estate Closing Coordinator Relationship Specialty Start Date End Date Rebecca Caceres MD [address] [place] [address] PCP - General 02/19/17 01/12/23 documented as of this encounter
== END 2024-08-27 20:34 | disposition left against medical advice (07) ==
PROVIDERS: Physician Assistant; Emergency Provider Emergency Medicine
DX: R11.2 Nausea with vomiting, unspecified (principal); R10.2 Pelvic and perineal pain; R19.7 Diarrhea, unspecified; Z79.899 Other long term (current) drug therapy
CPT/HCPCS: 36415; 80048; 80076; 81001; 81025; 83690; 83735; 85025; 99282; 99283

== ENCOUNTER 2025-06-21 09:13 | Outpatient (AMB) | payer OTHER, SELFPAY ==
--- NOTE | 2025-06-21 09:19 | A.OFFPC_ITS ---
Vital Signs 06/21/25 09:21 Height 5 ft 6 in Weight 165 lb BMI 26.6 BP 110/70 Blood Pressure Location Lt brachial Position Sitting Temp 97.3 F Temp Source Temporal Artery Scan Intake Visit Reasons: Annual Exam Intake Note: Patient is here today for a physical. Executive Sales Assistant Required: No Hospital Coder: Not Required per policy Accompanied by: Self / Same As Patient Allergies No Known Allergies Allergy (Verified 06/21/25 09:46) Medication List - Last Reconciled 06/21/25 by Rasheed Soliz MD norethindrone (contraceptive) ([employer]) 0.35 mg PO DAILY triamcinolone acetonide 0.025% 1 appl topical BID Tobacco use date assessed: 06/21/25 Dental Screening Dental Screen Date: 06/21/25 Did you have a dental visit in the last 12 months?: Yes Did you have a dental problem in the last 6 months where you did not have access to dental care?: No Was dental information given to patient?: Patient has dentist HPI HPI Comments History of Present Illness Details History of Present Illness - The patient is a 29-year-old female pr esenting for a physical with a primary complaint of worsening eczema. - She reports the eczema has been partic ularly bad this winter, affecting her scalp, forehead, neck, and both arms. - She notes discoloration on her forehea d and an itchy scalp. - These widespread symptoms are relative ly new, having developed over the last three months. - Previously, she had minor eczema flare s localized to a small area, which were triggered by certain products and would resolve after discontinuation. - She has not seen a oriental rug stretcher for t his condition recently, possibly since her teenage years, and has not used any prescription medications for it. - She uses wqxi-rgb-auderrt moisturizer and cream. - The patient has a history of a lipoma, which was surgically removed last year. - She was referred to a oriental rug stretcher fo r the lipoma in January 2021 but did not attend the appointment. - Her last blood work was in August of this year, which included a check for anemia, but a thyroid test was not performed. Social History - Tobacco Use: Denies smoking. - Alcohol Use: Denies alcohol use. - Drug Use: Denies illicit drug use. - Living Situation: Lives with her fianc ?? and two children, aged 4 and 2. - Employment: Works for the [employer] for [employer] and [employer] benefits. Results No new diagnostic results were reviewed during this visit. [facility] Medical History (Updated 09/06/24 @ 00:00 by Alejandro Troncoso) Preeclampsia complicating hypertension Overweight (BMI 25.0-29.9) Surgical History S/P excision of lipoma (07/27/24) Lipoma Family History Father Essential hypertension Mother Lupus (systemic lupus erythematosus) Social History Housing: Condominium Alcohol intake: never Patient Tobacco Use Status: Never used Tobacco e-Cigarette/Vaping Use: Never Used Second Hand Smoke Exposure: No service: No Current occupational status: employed Current occupation: [employer] Current occupational exposures/hazards: No Cognitive needs: No Hearing needs: No Vision needs: Yes (Glasses) Questionnaire PHQ-9 Over the last 2 weeks, how often have you been bothered by any of the following problems? 1. Little interest or pleasure in doing things: not at all 2. Feeling down, depressed, or hopeless: not at all 3. Trouble falling or staying asleep, or sleeping too much: not at all 4. Feeling tired or having little energy: not at all 5. Poor appetite or overeating: not at all 6. Feeling bad about yourself - or that you are a failure or have let yourself or your family down: not at all 7. Trouble concentrating on things, such as reading the newspaper or watching television: not at all 8. Moving or speaking so slowly that other people could have noticed. Or the opposite - being so fidgety or restless that you have been moving around a lot more than usual: not at all 9. Thoughts that you would be better off or of hurting yourself in some way: not at all Total score: 0 Depression Screening Interpretation: Negative Depression Screening Done: Yes Source: Developed by Drs. Олег Hernandez, Adelita Darden, Haile Morfin and colleagues, with an educational tracey from [employer]. Thrive Questionnaire Date Thrive assessed: 06/21/25 I am a: Patient What is your living situation today?: I have a steady place to live Within the past 12 months, did the food you bought not last and you didn't have the money to get more?: Never true Within the past 12 months, did you worry whether your food would run out before you got money to buy more?: Never true Do you have trouble paying for medicines?: No Do you have trouble getting transportation to medical appointments?: No Do you have trouble paying your heating and electricity bill?: No Do you have trouble taking care of your child, family member or friend?: No Do you have trouble with day-to-day activities such as bathing, preparing meals, shopping, managing finances, etc.?: No Are you currently unemployed and looking for a job?: No Are you interested in more education?: No Please select the resources that you would like help with: None Currently or been in a relationship where the following occur: No concerns reported THRIVE Score: 0 AUDIT C Alcohol Use Questionnaire (AUDIT-C) 1. How often do you have a drink containing alcohol?: Monthly or less 2. How many drinks containing alcohol do you have on a typical day when you are drinking?: 1 or 2 3. How often do you have six or more drinks on one occasion?: Never Total Score: 1 YASH-7 AMB Questionnaire YASH-7 Date YASH - 7 assessed: 06/21/25 Feeling nervous, anxious, or on edge: 0 = Not at all Not being able to stop or control worryin = Not at all Worrying too much about different things: 0 = Not at all Trouble relaxin = Not at all Being so restless that it is hard to sit still: 0 = Not at all Becoming easily annoyed or irritable: 0 = Not at all Feeling afraid as if something awful might happen: 0 = Not at all Total YASH-7 score (0-4 normal; 5-9 mild; 10-14 moderate; 15-21 severe): 0 Source: Developed by Drs. Олег Hernandez, Adelita Darden, Haile Morfin and colleagues, with an educational tracey from [employer]. Review of Systems Narrative Review of Systems - Integumentary: Reports severe eczema on scalp, forehead, neck, and arms with associated itching and skin discoloration. Denies wearing foundation. - HEENT: Reports good vision, including occasional night driving without issue. - General: Denies any other concerns. Physical exam (Primary Care) Vital Signs: Last Vital Signs Temp 97.3 F 06/21/25 09:21 BP 110/70 06/21/25 09:21 BMI result Body Mass Index 26.6 Tobacco/Smoking Status: Tobacco use Status Tobacco use date assessed 06/21/25 06/21/25 09:30 Patient Tobacco Use Status Never used Tobacco 06/21/25 09:30 e-Cigarette/Vaping Use Never Used 06/21/25 09:30 PHQ-9: PHQ-9 Score PHQ-9: Total score 0 06/21/25 09:30 Depression Screening Interpretation: Negative Thrive Assessment: Date of Thrive Assessment Date Thrive assessed 06/21/25 06/21/25 09:30 Currently or been in a relationship where the following occur: No concerns repo rted Narrative Physical Exam General: Appearance normal, both eyes and all related structures Nutritional Appearance: Well nourished Orientation/consciousness: Patient oriented x3 Limitations: No limitations Head: Distinct skin discoloration noted on the scalp Neck: Skin discoloration noted Chest: Normal palpation of entire chest wall Respiratory: Normal respiratory effort Neurology: Patient oriented x3 Coding Level of Care Code Est Pt Level 4 (67868) Est Pt Prev Care 18-39y(38971) Diagnoses Eczema L30.9 Lower back pain M54.50 Annual physical exam Z00.00 Assessment & Plan Assessment & Plan (1) Eczema: Code(s): L30.9 - Dermatitis, unspecified (2) Lower back pain: Code(s): M54.50 - Low back pain, unspecified Category: Medical (3) Annual physical exam: Code(s): Z00.00 - Encounter for general adult medical examination without abnormal findings Plan Plan - Will place a referral to a oriental rug stretcher for long-term management of eczema. - Prescribed a topical cream to be applied twice daily to the forehead, neck, and arms for symptomatic relief of itching while awaiting the dermatology appointment. - Ordered fasting blood work, to include a thyroid panel, as this has not been checked previously. - Patient declined an influenza vaccination. - Advised patient to follow up in six months. Discussion Notes I have discussed with the patient that her skin condition is consistent with eczema and that she would benefit from evaluation by a oriental rug stretcher for long- term management. I provided her with a prescription for a topical cream to use twice daily for symptomatic relief until she can be seen by the specialist. A referral to dermatology has been placed, and she was instructed to contact me via the patient portal if she does not receive a call to schedule an appointment within a week. I also recommended fasting blood work to check her thyroid levels and other parameters, which she can have done today. She declined the flu shot. She confirmed all her questions were answered, and I advised a follow-up in six months. Patient Instructions - You have been referred to a welding specialist (oriental rug stretcher) for your eczema. Their office will call you within one week to schedule an appointment. - If you do not hear from the oriental rug stretcher's office within a week, please send a message through the patient portal. - In the meantime, apply the prescribed cream to your forehead, neck, and arms twice a day to help with the itching. - Please go for fasting blood work as ordered. You can do this today at the lab across the street. - Schedule a follow-up appointment in six months. Orders: Orders Basic Metabolic Panel Today M54.50 - Low back pain, unspecified Liver Panel Today M54.50 - Low back pain, unspecified Lipid Panel Today M54.50 - Low back pain, unspecified Thyroid Stimulating Hormone Today M54.50 - Low back pain, unspecified Complete Blood Count no Diff Today M54.50 - Low back pain, unspecified Referrals Dermatology Referral L30.9 - Dermatitis, unspecified Medications: New triamcinolone acetonide 0.025% 1 appl topical BID 15 grams 0RF
[2025-06-21 09:21] VITALS: BP 110/70; TEMP 36.3; BMI 26.6
== END 2025-06-21 11:10 | disposition home or self-care (01) ==
LOC: HO.HMCH 09:14
PROVIDERS: PCP Internal Medicine; Visit Provider Internal Medicine
DX: Z00.00 Encounter for general adult medical examination without abnormal findings (principal); L30.9 Dermatitis, unspecified; M54.50 Low back pain, unspecified

== ENCOUNTER 2025-06-21 09:13 | Outpatient (REF) | payer OTHER, SELFPAY ==
[2025-06-21 10:15] LABS: Hematocrit 38.6 % (37.0-47.0); Hemoglobin 12.2 g/dl (12.0-16.0); Mean Corpuscular HGB Conc 31.6 g/dl (31.0-35.0); Mean Corpuscular Hemoglobin 23.8 pg (27.0-33.0); Mean Corpuscular Volume 75.2 fL (80.0-98.0); NRBC Abs Auto 0.000 X10*3/uL (0.0-0.012); NRBC Pct Auto 0.0 /100WBC (0.0-0.2); Platelet Count 295 X10*3/uL (160-400); Red Blood Count 5.13 X10*6/uL (4.20-5.50); White Blood Count 4.7 X10*3/uL (4.8-10.8)
[2025-06-21 10:41] LABS: Alanine Aminotransferase 16 U/L (0-31); Albumin Level 4.2 g/dL (3.5-5.0); Alkaline Phosphatase 54 U/L (39-117); Anion Gap 10 (12-20); Aspartate Amino Transferase 21 U/L (5-31); Blood Urea Nitrogen 9 mg/dL (9-16); Calcium 9.3 mg/dL (8.4-10.2); Carbon Dioxide 27 mmol/L (22-29); Chloride 109 mmol/L (96-108); Cholesterol 259 mg/dL (<200); Estimated Glomerular Filt Rate > 60; HDL Cholesterol 79 mg/dL (>40); Potassium 4.2 mmol/L (3.3-5.1); Sodium 142 mmol/L (135-145); Total Protein 7.4 g/dL (6.5-8.0); Triglycerides 85 mg/dL (<150)
[2025-06-21 10:58] LABS: Thyroid Stimulating Hormone 2.12 uIU/mL (0.32-4.0)
== END 2025-06-21 09:14 | disposition home or self-care (01) ==
LOC: HO.LAB 09:13
PROVIDERS: PCP Internal Medicine; Visit Provider Internal Medicine
DX: Z00.00 Encounter for general adult medical examination without abnormal findings (principal); M54.50 Low back pain, unspecified; L30.9 Dermatitis, unspecified; Z79.899 Other long term (current) drug therapy
CPT/HCPCS: 36415; 80048; 80061; 80076; 84443; 85027; 96127